=== PATIENT | female | born 1945 | race Caucasian/White ===

== ENCOUNTER → 2016-11-26 | Outpatient (CLI) | payer OTHER, MEDICARE ==
[~2016-11-26] VITALS: Ht 163.8 cm; Wt 75.2 kg
[2016-11-26 11:02] VITALS: BP 144/80; PULSE 74; Ht 163.8 cm; Wt 75.2 kg
== END | disposition home or self-care (01) ==
LOC: C.NEUR 10:30
PROVIDERS: ATTEND Internal Medicine Pulmonary Disease
DX: G47.33 Obstructive sleep apnea (adult) (pediatric) (principal); J31.0 Chronic rhinitis; F45.8 Other somatoform disorders

== ENCOUNTER → 2017-01-08 | Outpatient (CLI) | payer OTHER, MEDICARE ==
--- NOTE | 2017-01-09 06:40 | SPLIT NIGHT TECHNICIAN REPORT ---
[facility] Split Night Polysomnogram - Cath Lab Technologist Report Study date: 01/08/2017 Referring Physician: TYRONE VALENTINE DO, DO Name: GERMAINE SALES Cath Lab Technologist: MATT Vitale. Date of : 1945 Height: 71 years, Height 5' 4.5" Sex: Female Weight: 165 lbs Age: 71 BMI: Medications: 27.88 LIPOFLAVONOID, MULTI VIT, VIT B-12 1000 MCG, VIT B-2 100 MG Patient History 71 yr-old female here for a baseline/split study. She has a history of loud snoring and some daytime sleepiness. She had a UPPP around 2001. Since then her snoring has been increasing in volume. Her Flippin scale is 6. The test was started on room air. ETCO2 testing was not utilized during this study. Room 3 Parameters Monitored NPSG: E1-M2, E2-M1, Fp1-M2, Fp2-M1, F3-M2, F4-M2, F4-M1, C3-M2, C4-M2, C4-M1, O1-M2, O2-M2, O2-M1, T3-M2, T4-M1, P3-M2, P4-M1, CHIN1, CHIN2, HR, EKG, Legs, PFLOW, SNOR, FLOW, CFLOW, Tidal Volume, THOR, ABDO, SpO2, PLTH, CPRESS, ETCO2 Wave, ETCO2, pH SLEEP SUMMARY DATA DIAGNOSTIC TREATMENT Lights Out: 10:22:27 PM 12:56:57 AM Lights On: 12:42:27 AM 5:30:57 AM Total Recording Time (TRT): 140.0 min. 274.0 min. Total Sleep Time (TST): 125.0 min. 246.0 min. NREM Time: 119.5 min. 168.0 min. REM Time: 5.5 min. 78.0 min. Sleep Period Time (SPT): 135.5 min. 258.0 min. Sleep Efficiency (SE): 89 % 90 % Sleep Latency: 4.5 min. 16.0 min. Arousal Index: 56.2 29.8 PAP Treatment Levels: 4, 6, 8, 10, 12, 14, 16/12, 18/14, 20/16 * Optimal Pressure(s) SLEEP STAGING DATA DIAGNOSTIC TREATMENT Duration (min) TST % Duration (min) TST % Stage Wake: 15.0 min. -- 28.0 min. -- WASO: 10.5 min. -- 12.0 min. -- NREM: 119.5 min. 96 % 168.0 min. 68 % Stage N1: 21.5 min. 17 % 44.5 min. 18 % Stage N2: 98.0 min. 78 % 107.0 min. 43 % Stage N3: 0.0 min. 0 % 16.5 min. 7 % REM: 5.5 min. 4 % 78.0 min. 32 % POSITIONAL DATA Event Count Index Event Count Index Supine: 183 86.9 179 43.4 Supine NREM: 176 87.4 161 57.1 Supine REM: 7 76 18 14 Non-Supine: N/A N/A N/A N/A Non-Supine NREM: N/A N/A N/A N/A Non-Supine REM: N/A N/A N/A N/A AROUSAL SUMMARY DATA: Event Count Index Event Count Index Apnea Arousals: 13 7.2 59 25.6 Hypopnea Arousals: 64 30.7 20 4.9 Snore Arousals: 1 0.5 6 1.5 PLM Arousals: 15 7.2 5 1.2 Non-Specific Arousals: 23 11.0 21 5.1 Total Arousals: 117 56.2 122 29.8 MYOCLONUS (PLM) Event Count Index Event Count Index PLM: 150 72.0 52 12.7 PLM AROUSAL: 15 7.2 5 1.2 PLM W/O AROUSAL 150 72.0 47 11.5 PLM W/RESP EVENT 49 0.0 8 0.0 MYOCLONUS (PLM) Event Count Index Event Count Index LM: 1 58.6 119 29.0 LM AROUSAL: 1 0.5 6 1.5 LM W/O AROUSAL LM W/RESP EVENT LM NON SPECIFIC 132 63.4 102 24.9 HEART RATE DATA DIAGNOSTIC TREATMENT Sleep (bpm): 69 65 REM (bpm): 84 94 NREM (bpm): 90 92 Tachycardia Count: 0 0 Tachycardia Duration: 0.00 0 Bradycardia Count: 0 0 Bradycardia Duration: 0.00 0 DIAGNOSTIC PORTION TREATMENT PORTION RESPIRATORY DATA Event Count Index Event Count Index AHI: -- 86.9 -- 43.4 RDI: -- 87.8 -- 44 Obstructive Apnea: 15 7.2 56 13.7 Central Apnea: 0 0.0 29 7.1 Mixed Apnea: 0 0.0 20 4.9 Hypopnea: 166 79.7 73 17.8 RERA: 2 1.0 1 0.2 Total Apneas: 15 7.2 105 25.6 RESPIRATORY DATA REM NREM SLEEP REM NREM SLEEP Supine Position: Obstructive Apneas: 0 15 15 0 56 56 Central Apneas: 0 0 0 4 25 29 Mixed Apneas: 0 0 0 1 19 20 Hypopneas: 7 159 166 13 60 73 RERA 0 2 2 0 1 1 Total Supine Events: 7 176 183 18 161 179 Supine AHI: 76 87.4 86.9 14 57.1 43.4 Supine RDI: 76.4 88.4 87.8 13.8 57.5 43.7 REM NREM SLEEP REM NREM SLEEP Non-Supine Position: Obstructive Apneas: N/A N/A N/A N/A N/A N/A Central Apneas: N/A N/A N/A N/A N/A N/A Mixed Apneas: N/A N/A N/A N/A N/A N/A Hypopneas: N/A N/A N/A N/A N/A N/A RERA N/A N/A N/A N/A N/A N/A Total Supine Events: N/A N/A N/A N/A N/A N/A Supine AHI: N/A N/A N/A N/A N/A N/A Supine RDI: N/A N/A N/A N/A N/A N/A OXYGEN DESTAURATION DATA: Event Count Index Event Count Index REM Desaturations: 7 76.4 11 8.5 NREM Desaturations: 187 93.9 155 55.4 SNORE DATA DIAGNOSTIC TREATMENT Snore Time: 0.5 1:12:57 AM Snore TST%: 0 1 Snore Arousal Count: 1 6 Snore Arousal Index: 0.5 1.5 Desaturation Event Summary: Minimum %SpO2 Event Count Mean/Min/Max Duration(sec.) Desaturation Index % Time In Bed > 90 360 25.3 / 9.0 / 59.5 77.5 67.3 86 - 90 81 16.7 / 8.8 / 38.5 41.9 28.0 81 - 85 1 22.0 / 22.0 / 22.0 3.9 3.7 76 - 80 0 N/A 0.0 0.9 71 - 75 0 N/A 0.0 0.1 66 - 70 0 N/A 0.0 0.0 61 - 65 0 N/A 0.0 0.0 56 - 60 0 N/A 0.0 0.0 51 - 55 0 N/A 0.0 0.0 < 50 0 N/A 0.0 0.0 OXYGEN SATURATION DATA DIAGNOSTIC TREATMENT SpO2 Mean Sleep: 90 % 93 % SpO2 Mean REM: 84 % 94 % SpO2 Mean NREM: 90 % 92 % SpO2 Minimum Sleep: 74 % 75 % SpO2 Minimum REM: 74 % 75 % SpO2 Minimum NREM: 82 % 82 % Time Below 90% (TST): 55.9 38.0 Time Below 88% (TST): 27.9 17.6 Total REM NREM Awake <50% 0.0 min. 0.0 min. 0.0 min. 0.0 min. 51 - 60% 0.0 min. 0.0 min. 0.0 min. 0.0 min. 61 - 70% 0.0 min. 0.0 min. 0.0 min. 0.0 min. 71 - 80% 4.0 min. 3.3 min. 0.0 min. 0.7 min. 81 - 90% 131.1 min. 9.2 min. 110.5 min. 11.4 min. 91 - 100% 278.6 min. 71.1 min. 177.0 min. 30.6 min. Average 92 93 91 92 Minimum SpO2 74 74 82 74 Desaturation Event Index 54.9 12.9 71.4 32.1 # Desat. Events below 89% 288 18 259 11 Time(%) with Saturation below 89% 17.5 2.5 13.5 1.5 Time(min.) with Saturation below 89% 72.5 10.5 55.7 6.3 Recording Cath Lab Technologist Comments: Ms. Sales slept only in the supine position. Occasional cardiac arrhythmias were noted (please refer to the printout). No bruxism noted. Snoring was noted and scored as a 2 on a scale of 1 through 5. (0=no snoring, 5=snoring loud enough to be heard through a closed door or down the [address] way). At 12:55 am, she met specific Split-Night criteria during the diagnostic portion of this study. CPAP was initiated at +4 CMH2O and up-titrated to a level of +14 CMH2O, Cflex 2. She continued to have hypopneas and apneas at a pressure of 14 CMH2O so she was switched to BiPAP due to being on a high pressure. BiPAP was started at +16/12 CMH2O and up-titrated to a level of +20/16 CMH2O BiFlex 3. An AirFit F10 full face mask size small from [employer] was used during titration. She awoke to use the restroom one time during the night. Ms. Sales stated that she slept about the same as usual. The final report will be interpreted and signed by a sleep physician. The completed physician report will then be placed in the patient medical record. Therapy Event: Therapy (cm H20) 0 4 6 8 10 12 14 16/12 18/14 20/16 Total Time at Pressure (min.) 140.0 20.2 26.1 12.6 43.4 23.2 19.0 5.8 35.8 87.9 TST at Pressure (min.) 125.0 4.2 22.6 12.6 43.4 21.2 15.5 5.8 34.8 85.9 # Periods 1 1 1 1 1 1 1 1 1 1 Sleep Onset (min.) 4.5 16.0 0.0 0.0 0.0 0.0 0.0 0.0 0.0 0.0 REM Onset (min.) 134.5 N/A N/A N/A N/A 5.7 0.0 N/A N/A 10.4 Sleep Efficiency % 89 20 86 100 100 91 81 100 97 97 Wakefulness (%) 10.7 79.2 13.4 0.0 0.0 8.6 18.4 0.0 2.8 2.3 Wakefulness (min.) 15.0 16.0 3.5 0.0 0.0 2.0 3.5 0.0 1.0 2.0 NREM 1 (%) 15.4 20.8 65.6 17.2 1.2 6.5 39.9 16.1 11.2 7.4 NREM 1 (min.) 21.5 4.2 17.1 2.2 0.5 1.5 7.6 0.9 4.0 6.5 NREM 2 (%) 70.0 0.0 21.0 82.8 96.5 20.1 39.5 83.9 42.8 19.2 NREM 2 (min.) 98.0 0.0 5.5 10.4 41.9 4.7 7.5 4.8 15.3 16.9 NREM 3 (%) 0.0 0.0 0.0 0.0 2.3 0.0 0.0 0.0 43.3 0.0 NREM 3 (min.) 0.0 0.0 0.0 0.0 1.0 0.0 0.0 0.0 15.5 0.0 REM (%) 3.9 0.0 0.0 0.0 0.0 64.8 2.3 0.0 0.0 71.1 REM (min.) 5.5 0.0 0.0 0.0 0.0 15.1 0.4 0.0 0.0 62.5 # Arousals 117 5 36 14 13 15 10 5 12 12 Arousal Index 56.2 71.4 95.4 66.7 18.0 42.4 38.7 52.1 20.7 8.4 # Snore 31 1 1 1 3 13 2 2 6 4 Snore Index 14.9 14.3 2.7 4.8 4.1 36.7 7.7 20.8 10.3 2.8 AHI 86.9 100.0 95.4 90.5 70.5 50.8 46.4 52.1 25.8 10.5 AHI Supine 86.9 100.0 95.4 90.5 70.5 50.8 46.4 52.1 25.8 10.5 AHI Non-Supine N/A N/A N/A N/A N/A N/A N/A N/A N/A N/A NREM AHI 87.4 100.0 95.4 90.5 70.5 48.5 47.8 52.1 25.8 25.7 REM AHI 76.4 N/A N/A N/A N/A 51.8 0.0 N/A N/A 4.8 RDI 87.8 100.0 95.4 90.5 70.5 53.6 46.4 52.1 25.8 10.5 # Obstructive 15 0 16 16 7 1 4 5 7 0 # Central Ap 0 6 11 0 1 0 0 0 2 9 # Mixed 0 0 9 1 0 0 6 0 1 3 # Hypopneas 166 1 0 2 43 17 2 0 5 3 RERAS 2 0 0 0 0 1 0 0 0 0 Total Respiratory Events 183 7 36 19 51 19 12 5 15 15 Time Below SpO2 89.00% (min.) 40.3 0.4 5.7 3.4 6.8 6.4 1.1 0.0 1.2 1.0 Mean NREM SpO2 (%) 90 91 91 91 91 93 94 93 93 94 Mean REM SpO2 (%) 84 N/A N/A N/A N/A 90 89 N/A N/A 95 Mean Sleep SpO2 (%) 90 91 91 91 91 91 93 93 93 95 Min NREM SpO2 (%) 82 87 82 82 85 87 85 89 85 86 Min REM SpO2 (%) 74 N/A N/A N/A N/A 75 75 N/A N/A 92 Position Supine (min.) 125.0 4.2 22.6 12.6 43.4 21.2 15.5 5.8 34.8 85.9 Position Non-supine (min.) 0.0 0.0 0.0 0.0 0.0 0.0 0.0 0.0 0.0 0.0 LM Index Sleep 130.6 14.3 15.9 61.9 127.2 67.8 3.9 10.4 29.3 11.2 LM Index NREM 132.1 14.3 15.9 61.9 127.2 116.5 4.0 10.4 29.3 33.4 LM Index REM 98.2 N/A N/A N/A N/A 47.8 0.0 N/A N/A 2.9 Mean Heart Rate (bpm) 69 65 65 65 65 68 65 63 64 65 Min Heart Rate (bpm) 59 60 58 59 57 56 60 60 59 59 CPAP REPORT Therapy Detail Time / Page # Comment CPAP 4 cm H2O Full Face Mask Flex Pressure Relief Humidifier on 12:55:33 AM / pg. 545 SHE HAS BEEN ASLEEP FOR OVER 2 HOURS AND HER AHI IS ABOVE 40 CPAP 6 cm H2O Full Face Mask Flex Pressure Relief Humidifier on 1:17:09 AM / pg. 588 INCREASED FOR HYPOPNEAS CPAP 8 cm H2O Full Face Mask Flex Pressure Relief Humidifier on 1:43:17 AM / pg. 640 INCREASED FOR APNEAS CPAP 10 cm H2O Full Face Mask Flex Pressure Relief Humidifier on 1:55:53 AM / pg. 665 INCREASED FOR APNEAS CPAP 12 cm H2O Full Face Mask Flex Pressure Relief Humidifier on 2:39:16 AM / pg. 752 INCREASED FOR HYPOPNEAS CPAP 14 cm H2O Full Face Mask Flex Pressure Relief Humidifier on 3:02:31 AM / pg. 799 INCREASED FOR APNEAS AND HYPOPNEAS BiLevel 16/12 cm H2O Full Face Mask Flex Pressure Relief Humidifier on 3:21:32 AM / pg. 837 PRESSURE WAS REACHING A HIGH PRESSURE. SWITCHED TO BIPAP FOR CONTINUED RESP EVENTS BiLevel 18/14 cm H2O Full Face Mask Flex Pressure Relief Humidifier on 3:27:17 AM / pg. 848 INCREASED EPAP FOR OBSTRUCTIVE APNEAS AND INCREASED IPAP TO KEEP THE PRESSURE DIFFERENTIAL OF 4 BiLevel 20/16 cm H2O Full Face Mask Flex Pressure Relief Humidifier on 4:03:06 AM / pg. 920 INCREASED EPAP FOR OBSTRUCTIVE APNEAS AND INCREASED IPAP TO KEEP THE PRESSURE DIFFERENTIAL OF 4
--- NOTE | 2017-01-12 22:09 | POLYSOMNOGRAPH REPORT ---
CLINICAL DATA: The patient is a 71-year-old female with a BMI of 27.88. She was referred by Dr. Iglesia Morel. She had a history of sleep apnea, diagnosed in the early . She was treated with UPPP surgery in 2001. She now has significant symptoms, including snoring, disturbed nocturnal sleep, and excessive daytime somnolence. Her Cyril score is 6 out of a possible 24. This study was a split night polysomnogram done in the sleep lab. SLEEP ARCHITECTURE: During the diagnostic portion of the study, the sleep period time was 135.5 minutes. The total sleep time was 125.0 minutes. The sleep efficiency was 89%. Sleep latency was normal at 4.5 minutes. The arousal index was severely elevated at 56.2. Sleep consisted of 17% stage N1, 78% stage N2, 0% stage N3, and 4% REM sleep. During the therapeutic portion of the study, the sleep period time was 258.0 minutes. The total sleep time was 246.0 minutes. The sleep efficiency was 90%. Sleep latency was normal at 16 minutes. The arousal index was 29.8. Sleep consisted of stage N1 18%, stage N2 43%, stage N3 7%, and stage REM 32%. AROUSAL DATA: The patient had a total of 117 arousals during the diagnostic portion of the study, including 13 apnea arousals, 64 hypopnea arousals, 1 snoring arousal, 15 PLM arousal, and 23 nonspecific arousals. The arousal index was 56.2. During the therapeutic portion of the study, the patient had 122 arousals, including 59 apnea arousals, 20 hypopnea arousals, 6 snoring arousals, 5 PLM arousals, and 21 nonspecific arousals. The arousal index during the therapeutic portion was 29.8. PERIODIC LIMB MOVEMENTS DATA: During the diagnostic portion of the study, the patient had 150 periodic limb movements for a PLM index of 72.0. There were 15 arousals for a PLM arousal index of 7.2. During the therapeutic portion of the study, there were 52 periodic limb movements for an index of 12.7. The PLM arousal index was 1.2. EKG: The underlying cardiac rhythm was normal sinus. There were at least moderate PVCs with an occasional PAC. The cardiac rates ranged from 65-94 beats per minute. RESPIRATORY DATA: During the diagnostic portion of the study, the patient had a total of 181 respiratory events, including 15 obstructive apneas and 166 hypopneas. Hypopneas were scored by the 4 percent rule. The apnea-hypopnea index was severely elevated at 86.9. During the therapeutic portion of the study, when the patient was treated with CPAP and then BiPAP, she had 105 apneas, including 56 obstructive apneas, 29 central apneas, and 20 mixed apneas. This was along with 73 hypopneas. The apnea-hypopnea index was still severely elevated at 43.4 events per hour. However, at the final pressure of BiPAP, 20/16, the apnea-hypopnea index was only 10.5. This occurred over a period of 87.9 minutes. OXIMETRY DATA: During the diagnostic portion of the study, the mean saturation was 90%. The minimum saturation was 74%. There were 27.9 minutes with saturations less than 88%. During the therapeutic portion of the study, the mean saturation was 93%. The minimum saturation was 75%. There was a total of 17.6 minutes with saturations less than 88%. DEICER KIT ASSEMBLER'S COMMENTS: The patient slept only in the supine position. Occasional cardiac arrhythmias were noted. No bruxism was noted. Snoring was noted and scored as a 2 on a scale of 1 through 5. At 12:55 a.m., she met specific split night criteria during the diagnostic portion of the study, which had shown severe sleep apnea. CPAP was initiated at 4 cm and up titrated to a level of 14 cm, where she continued to have hypopneas and apneas. She was switched to BiPAP. The BiPAP was titrated up to a final pressure of 20/16. An AirFit F10 full facemask, size small, was utilized during the titration. IMPRESSION: 1. Obstructive sleep apnea -- severe. 2. Cardiac arrhythmia. COMMENTS: The patient underwent a split night study, because she had severe sleep apnea during the diagnostic portion of the study. As noted, her apnea-hypopnea index during the diagnostic was 86.9 events per hour. She was titrated to a final pressure of 20/16 at which time, her apnea-hypopnea index was 10.5. She seemed to tolerate treatment well. There was improvement in her oxygenation, although there were still some desaturations. She did have cardiac arrhythmia, intermittently, throughout the study. There were no runs of arrhythmia. RECOMMENDATIONS: 1. It is advised that the patient be treated with BiPAP 20/16. 2. It is suggested that she be treated with an AirFit F10 full facemask, size small. 3. Heated humidity is advised for the CPAP. 4. If possible, the patient should be advised to avoid sleeping in the supine position. 5. The patient needs to be seen in followup between day 31 and day 90. Compliance data will need to be obtained. MTDD
== END | disposition home or self-care (01) ==
LOC: C.NEUR 20:00
PROVIDERS: ATTEND Internal Medicine Pulmonary Disease
DX: G47.33 Obstructive sleep apnea (adult) (pediatric) (principal); I49.9 Cardiac arrhythmia, unspecified

== ENCOUNTER → 2017-03-25 | Outpatient (CLI) | payer OTHER, MEDICARE ==
[~2017-03-25] VITALS: Ht 163.8 cm; Wt 76.1 kg
[2017-03-25 11:30] VITALS: BP 126/76; PULSE 74; Ht 163.8 cm; Wt 76.1 kg
== END | disposition home or self-care (01) ==
LOC: C.NEUR 10:38
PROVIDERS: ATTEND Internal Medicine Pulmonary Disease
DX: G47.33 Obstructive sleep apnea (adult) (pediatric) (principal)